=== PATIENT | female | born 1990 ===

== ENCOUNTER 2018-08-29 14:46 | Emergency (ER) | payer SELFPAY ==
[2018-08-29 15:05] VITALS: BP 110/63
--- NOTE | 2018-08-29 15:56 | UC ---
Abdominal Pain Female HPI - HPI Summary HPI Summary: 27-year-old female presents with sudden onset of generalized abdominal pain at 1 :00 this morning. Describes pain as a "pulling" inside her abdomen but states it is not a cramp. Pain is constant. Nonradiating. Also states she has had some burning with urination. She states that around 3:00 in the morning she also started having intermittent severe headache that would cause her vision to briefly become blurred when it is at its most severe. Denies fever, chills, dizziness, chest pain, palpitations, shortness of breath, nausea, vomiting, diarrhea, frequency, urgency, hematuria, or vaginal discharge. Reports she has not had a menstrual period in about 2-1/2 years. States she was on Depo- Provera for part of that time however has not received any injections in several months. She is actively trying to become . - History of Current Complaint Chief Complaint: UCAbdominalPain Stated Complaint: HEADACHE Time Seen by Provider: 08/29/18 15:28 Hx Obtained From: Patient Hx Last Menstrual Period: 2 years ago Pain Intensity: 10 Allergies/Adverse Reactions: Allergies Allergy/AdvReac Type Severity Reaction Status Date / Time No Known Allergies Allergy Verified 08/29/18 14:55 Home Medications: Home Medications Ibuprofen [Goodsense Ibuprofen] 400 mg PO Q6HR 08/29/18 [History Confirmed 08/29] Pnv No.95/Ferrous Fum/Folic AC [ Vitamin & Minera 28-0.8 mg] 1 tab PO DAILY 08/29/18 [History Confirmed 08/29/18] PMH/Surg Hx/FS Hx/Imm Hx Previously Healthy: Yes - Denies significant PMH. - Surgical History Surgical History: Yes Surgery Procedure, Year, and Place: c section x2 - Family History Known Family History: Positive: Non-Contributory - Social History Occupation: Employed Full-time Lives: With Family Alcohol Use: None Substance Use Type: None Smoking Status (MU): Never Smoked Tobacco Review of Systems All Other Systems Reviewed And Are Negative: Yes Constitutional: Negative: Fever, Chills Skin: Negative: Rash Eyes: Positive: Blurred Vision. Negative: Diplopia, Drainage, Eye Redness, Photophobia ENT: Negative: Sore Throat, Ear Ache, Nasal Discharge, Sinus Congestion, Sinus Pain/Tenderness Respiratory: Negative: Shortness Of Breath, Cough Cardiovascular: Negative: Palpitations, Chest Pain Gastrointestinal: Positive: Abdominal Pain. Negative: Vomiting, Diarrhea, Nausea Genitourinary: Positive: Dysuria. Negative: Hematuria, Frequency, Urgency, Vaginal/Penile Discharge, Abnormal Bleeding Musculoskeletal: Positive: Negative Neurological: Positive: Headache. Negative: Weakness, Paresthesia, Numbness Is Patient Immunocompromised?: No Physical Exam - Summary Physical Exam Summary: GENERAL APPEARANCE: Well developed, well nourished, alert and cooperative, and appears to be in no acute distress. EYES: Conjunctiva clear. No discharge. Vision is grossly intact. EARS: External auditory canals and tympanic membranes clear, hearing grossly intact. NOSE: No nasal discharge. THROAT: Oral cavity and pharynx normal. No inflammation, swelling, exudate, or lesions. Teeth and gingiva in good general condition. NECK: Neck supple, non-tender without lymphadenopathy. CARDIAC: Normal S1 and S2. No S3, S4 or murmurs. Rhythm is regular. There is no peripheral edema, cyanosis or pallor. Extremities are warm and well perfused. Capillary refill is less than 2 seconds. LUNGS: Clear to auscultation and percussion without rales, rhonchi, wheezing or diminished breath sounds. ABDOMEN: Soft, nondistended. Mild generalized abdominal pain most prominent over the RUQ. No guarding or rebound. No masses or hepatosplenomegally. Positive bowel sounds. MUSKULOSKELETAL: ROM intact to all extremities. No joint erythema or tenderness. Normal muscular development. Normal gait. NEUROLOGICAL: CN II-XII intact. Strength and sensation symmetric and intact throughout. SKIN: Skin normal color, texture and turgor with no lesions or eruptions. Triage Information Reviewed: Yes Vital Signs: Initial Vital Signs Temp 98.1 F 08/29/18 14:56 Pulse 65 08/29/18 14:56 Resp 18 08/29/18 14:56 BP 110/63 08/29/18 14:56 Pulse Ox 98 08/29/18 14:56 Vital Signs Reviewed: Yes Diagnostics - Laboratory Diagnostic Studies Completed/Ordered: POC UA showed trace ketones otherwise normal. Urine negative. Abd Pain Female Course/Dx - Course Course Of Treatment: 27-year-old female presents with sudden onset of generalized abdominal pain at 1:00 this morning. Describes pain as a "pulling" inside her abdomen but states it is not a cramp. Pain is constant. Nonradiating. Also states she has had some burning with urination. She states that around 3:00 in the morning she also started having intermittent severe headache that would cause her vision to briefly become blurred when it is at its most severe. Denies fever, chills, dizziness, chest pain, palpitations, shortness of breath, nausea, vomiting, diarrhea, frequency, urgency, hematuria, or vaginal discharge. Reports she has not had a menstrual period in about 2-1/ 2 years. States she was on Depo-Provera for part of that time however has not received any injections in several months. She is actively trying to become . Afebrile. Vital signs stable. Exam revealed an adult female in no acute distress. She had some abdominal tenderness with palpation most prominently over the right upper quadrant. Remainder of exam was unremarkable. POC urinalysis revealed trace ketones otherwise negative. Urine was negative. With the right upper quadrant pain recommending further evaluation in the emergency room. Patient is agreeable to this and is electing to transport via private vehicle. - Differential Dx/Diagnosis Differential Diagnosis: Appendicitis, Constipation, Ectopic , Gall Bladder Disease, Ovarian Cyst, Renal Colic, Urinary Tract Infection Provider Diagnosis: Acute abdominal pain Discharge - Sign-Out/Discharge Documenting (check all that apply): Patient Departure All imaging exams completed and their final reports reviewed: No Studies - Discharge Plan Condition: Stable Disposition: HOME-RECOMMEND TO ED Patient Education Materials: Acute Abdominal Pain (ED) Referrals: No Primary Care Phys,NOPCP [Primary Care Provider] - Additional Instructions: Your urine test in the clinic today did not show any signs of infection and the test was negative. With you having abdominal pain, especially in the the right upper quadrant, I am recommending that you go to the emergency room for evaluation. Go directly to the emergency room from the clinic. Do not eat or drink anything until you have been evaluated. - Billing Disposition and Condition Condition: STABLE Disposition: Home-Recommend to ED
== END 2018-08-29 16:08 | disposition home health service (06) ==
LOC: UCEAST 14:46
DX: R10.9 Unspecified abdominal pain (principal); R51 Headache; R30.0 Dysuria
CPT/HCPCS: 81003; 84702; 99202; G0463

== ENCOUNTER 2018-08-29 16:23 | Emergency (ER) | payer SELFPAY ==
[2018-08-29 19:55] LABS: ABS Basophils 0.1 10^3/ul (0-0.2); ABS Eosinophils 0.1 10^3/ul (0-0.6); ABS Lymphocytes 2.9 10^3/ul (1.0-4.8); ABS Monocytes 0.5 10^3/ul (0-0.8); ABS Neutrophils 5.1 10^3/ul (1.5-7.7); ABS Nucleated RBC 0 10^3/ul; Eosinophil % 0.9 %; Hematocrit 47 % (35-47); Hemoglobin 15.4 g/dl (12.0-16.0); Lymphocyte % 33.8 %; Mean Corpuscular HGB Conc 33 g/dl (31-36); Mean Corpuscular Hemoglobin 31 pg (27-31); Mean Corpuscular Volume 94 fL (80-97); Mean Platelet Volume 8.7 fL (7.4-10.4); Nucleated Red Blood Cells % 0.1; Platelet Count 230 10^3/ul (150-450); Red Blood Count 4.93 10^6/ul (4.00-5.40); Red Cell Distribution Width 13 % (10.5-15); White Blood Count 8.6 10^3/ul (3.5-10.8)
[2018-08-29 20:16] LABS: Albumin 4.6 g/dL (3.2-5.2); Albumin/Globulin Ratio 1.2 (1-3); BUN/Creatinine Ratio 15.6 (8-20); Calcium 9.8 mg/dL (8.6-10.3); EGFR Non-African American 111.3 (>60); Globulin 3.8 g/dL (2-4); Total Bilirubin 0.8 mg/dL (0.2-1.0); Total Protein 8.4 g/dL (6.4-8.9)
[2018-08-29] MEDS ORDERED: Al Hydrox/Mg Hydrox/Simet LIQ* 30 ML UDC PO ONE (20:33)
[2018-08-29] MEDS ORDERED: Lidocaine 2% VISCOUS* 15 ML UDC PO ONE (20:33)
[2018-08-29] MEDS ORDERED: Acetaminophen TAB* 325 MG PO ONE (20:43)
[2018-08-29] MEDS ORDERED: diPHENhydraMINE PO* 50 MG PO ONE (20:51)
[2018-08-29] MEDS ORDERED: Metoclopramide TAB* 10 MG PO ONE (20:52)
[2018-08-29] MEDS ORDERED: Ketorolac TAB * 10 MG TAB PO ONE (20:52)
[2018-08-29] MEDS ORDERED: Omeprazole CAP (NF) 20 MG CAP.DR PO ONE (22:45)
--- NOTE | 2018-08-29 22:47 | ED ---
Abdominal Pain/Female - HPI Summary HPI Summary: Patient sent from [facility] care to ED for further evaluation of upper abdominal pain and headache with very short episodes of blurred vision. Symptoms started together at 1 AM this morning. Patient states history of same headaches times one year that have been getting during progressively worse. Abdominal pain described as epigastric, right upper quadrant, constant, variable , no radiation, sharp. Denies prior history of this same abdominal pain, heartburn, GERD. Also complains of burning with urination. Denies fever, N/V/D , vaginal symptoms, CP, SOB, focal deficits, neck stiffness. Abdominal surgical history is C-sections 2. LMP 2.5 years ago for unknown reason. Evaluation by [facility] 1 year ago, patient is unaware of formal diagnosis. - History of Current Complaint Chief Complaint: EDAbdPain Stated Complaint: ABD PAIN Time Seen by Provider: 08/29/18 20:26 Hx Obtained From: Patient Hx Last Menstrual Period: 2 years ago Onset/Duration: Sudden Onset, Lasting Hours Timing: Constant Severity Initially: Moderate Severity Currently: Moderate Pain Intensity: 5 Pain Scale Used: 0-10 Numeric Location: Discrete At: RUQ, Epigastric Radiates: No Character: Sharp Aggravating Factor(s): Nothing Alleviating Factor(s): Nothing Allergies/Adverse Reactions: Allergies Allergy/AdvReac Type Severity Reaction Status Date / Time No Known Allergies Allergy Verified 08/29/18 16:45 PMH/Surg Hx/FS Hx/Imm Hx Endocrine/Hematology History: Denies: Hx Anticoagulant Therapy Cardiovascular History: Denies: Hx Cardiac Arrest History: Denies: Hx Dialysis Sensory History: Denies: Hx Eye Prosthesis EENT History: Denies: Hx Deafness Neurological History: Denies: Hx Developmental Delay Psychiatric History: Denies: Hx Autism - Surgical History Surgery Procedure, Year, and Place: c section x2 Infectious Disease History: No Infectious Disease History: Denies: Traveled Outside the [place] in Last 30 Days - Family History Known Family History: Positive: Non-Contributory - Social History Alcohol Use: None Substance Use Type: Reports: None Smoking Status (MU): Never Smoked Tobacco Review of Systems Constitutional: Negative Eyes: Negative ENT: Negative Cardiovascular: Negative Respiratory: Negative Positive: Abdominal Pain Positive: burning Musculoskeletal: Negative Skin: Negative Positive: Headache Psychological: Normal All Other Systems Reviewed And Are Negative: Yes Physical Exam - Summary Physical Exam Summary: Abdomen tender to palpation in epigastric and right upper quadrant. Abdominal exam otherwise unremarkable. Neck supple with full range of motion. Neuro exam normal. Triage Information Reviewed: Yes Vital Signs On Initial Exam: Initial Vitals Temp Pulse Resp BP Pulse Ox 97.9 F 55 16 101/56 100 08/29/18 16:42 08/29/18 16:42 08/29/18 16:42 08/29/18 16:42 08/29/18 16:42 Vital Signs Reviewed: Yes Appearance: Positive: Well-Appearing Skin: Positive: Warm Head/Face: Positive: Normal Head/Face Inspection Eyes: Positive: Normal ENT: Positive: Normal ENT inspection Neck: Positive: Supple Respiratory/Lung Sounds: Positive: Clear to Auscultation Cardiovascular: Positive: Normal Abdomen Description: Positive: Nontender Musculoskeletal: Positive: Normal Neurological: Positive: Normal Psychiatric: Positive: Normal AVPU Assessment: Alert - Palmer Coma Scale Best Eye Response: 4 - Spontaneous Best Motor Response: 6 - Obeys Commands Best Verbal Response: 5 - Oriented Coma Scale Total: 15 Diagnostics - Vital Signs Vital Signs Temp Pulse Resp BP Pulse Ox 08/29/18 21:06 52 107/59 100 08/29/18 21:00 61 99 08/29/18 20:49 133/70 08/29/18 20:36 63 125/72 100 08/29/18 20:28 63 99 08/29/18 19:13 98.0 F 56 16 120/63 100 08/29/18 16:42 97.9 F 55 16 101/56 100 - Laboratory Lab Results: Lab Results 08/29/18 08/29/18 Range/Units 19:32 19:32 WBC 8.6 (3.5-10.8) 10^3/ul RBC 4.93 (4.00-5.40) 10^6/ul Hgb 15.4 (12.0-16.0) g/dl Hct 47 (35-47) % MCV 94 (80-97) fL MCH 31 (27-31) pg MCHC 33 (31-36) g/dl RDW 13 (10.5-15) % Plt Count 230 (150-450) 10^3/ul MPV 8.7 (7.4-10.4) fL Neut % (Auto) 59.0 % Lymph % (Auto) 33.8 % [place] % (Auto) 5.6 % Eos % (Auto) 0.9 % Baso % (Auto) 0.7 % Absolute Neuts (auto) 5.1 (1.5-7.7) 10^3/ul Absolute Lymphs (auto) 2.9 (1.0-4.8) 10^3/ul Absolute Monos (auto) 0.5 (0-0.8) 10^3/ul Absolute Eos (auto) 0.1 (0-0.6) 10^3/ul Absolute Basos (auto) 0.1 (0-0.2) 10^3/ul Absolute Nucleated RBC 0 10^3/ul Nucleated RBC % 0.1 Sodium 139 (135-145) mmol/L Potassium 4.0 (3.5-5.0) mmol/L Chloride 106 (101-111) mmol/L Carbon Dioxide 26 (22-32) mmol/L Anion Gap 7 (2-11) mmol/L BUN 10 (6-24) mg/dL Creatinine 0.64 (0.51-0.95) mg/dL Est GFR ( Amer) 134.7 (>60) Est GFR (Non-Af Amer) 111.3 (>60) BUN/Creatinine Ratio 15.6 (8-20) Glucose 81 (70-100) mg/dL Calcium 9.8 (8.6-10.3) mg/dL Total Bilirubin 0.80 (0.2-1.0) mg/dL AST 18 (13-39) U/L ALT 16 (7-52) U/L Alkaline Phosphatase 90 (34-104) U/L Total Protein 8.4 (6.4-8.9) g/dL Albumin 4.6 (3.2-5.2) g/dL Globulin 3.8 (2-4) g/dL Albumin/Globulin Ratio 1.2 (1-3) Lipase 10 L (11.0-82.0) U/L Result Diagrams: 08/29/18 19:32 08/29/18 19:32 Lab Statement: Any lab studies that have been ordered have been reviewed, and results considered in the medical decision making process. Abdominal Pain Fem Course/Dx - Course Course Of Treatment: Patient sent from [facility] care to ED for further evaluation of upper abdominal pain and headache with very short episodes of blurred vision. Symptoms started together at 1 AM this morning. Patient states history of same headaches times one year that have been getting during progressively worse. Abdominal pain described as epigastric, right upper quadrant, constant, variable, no radiation, sharp. Denies prior history of this same abdominal pain, heartburn, GERD. Also complains of burning with urination. Denies fever, N/V/D, vaginal symptoms, CP, SOB, focal deficits, neck stiffness. Abdominal surgical history is C-sections 2. LMP 2.5 years ago for unknown reason. Evaluation by [facility] 1 year ago, patient is unaware of formal diagnosis. Physical exam:Abdomen tender to palpation in epigastric and right upper quadrant. Abdominal exam otherwise unremarkable. Neck supple with full range of motion. Neuro exam normal. Vital signs within normal limits. Labs unremarkable. Patient abdominal symptoms resolved almost immediately with GI cocktail. Rx for omeprazole. Mild migraine headache resolved with migraine cocktail. Advised patient follow-up with primary care for recurrent migraine. - Diagnoses Provider Diagnoses: Gastritis, Migraine Discharge - Sign-Out/Discharge Documenting (check all that apply): Patient Departure - Discharge Plan Condition: Stable Disposition: HOME Prescriptions: Omeprazole 20 mg PO DAILY 30 Days #30 capsule. Patient Education Materials: Gastritis (ED), Migraine Headache (ED) Print Language: SAMI Referrals: No Primary Care Phys,NOPCP [Primary Care Provider] - [facility] [Outside] Additional Instructions: Take omeprazole daily in the morning for stomach pain. Alternate Tylenol 650 mg with ibuprofen 400 mg every 3 hours for headache. Follow-up with primary care. Return to the ED for any new or worsening symptoms. - Billing Disposition and Condition Condition: STABLE Disposition: Home
[2018-08-29 23:02] VITALS: BP 106/78
== END 2018-08-29 23:00 | disposition home or self-care (01) ==
LOC: ED 16:23
DX: K29.70 Gastritis, unspecified, without bleeding (principal); G43.909 Migraine, unspecified, not intractable, without status migrainosus; R30.0 Dysuria
CPT/HCPCS: 36415; 76705; 80053; 83690; 85025; 99283; A9270-GY